=== PATIENT | male | born 1995 | race Caucasian/White ===

== ENCOUNTER 2016-11-25 23:37 | Inpatient (IN) | payer OTHER ==
[~2016-11-25] VITALS: Ht 190.5 cm; Wt 108.4 kg
[2016-11-25 23:57] LABS: BASOPHILS % (AUTO) 0.3 % (0.0-2.0); EOSINOPHILS % (AUTO) 0.8 % (1.0-6.0); HEMOGLOBIN 16.6 g/dL (13.5-17.5); LYMPHOCYTES # (AUTO) 4.7 K/uL (1.0-4.8); LYMPHOCYTES % (AUTO) 38.2 % (22.0-44.0); MEAN CORPUSCULAR HEMOGLOBIN 31.1 pg (26.0-34.0); MEAN CORPUSCULAR HGB CONC 33.9 G/dL (31.0-37.0); MEAN CORPUSCULAR VOLUME 92 fL (80-100); MONOCYTES # (AUTO) 1.1 K/uL (0.1-1.0); MONOCYTES % (AUTO) 9.2 % (2.0-9.0); NEUTROPHILS # (AUTO) 6.4 K/uL (1.8-7.7); NEUTROPHILS % (AUTO) 51.5 % (40.0-70.0); PLATELET COUNT (AUTO) 287 K/uL (150-450); RED BLOOD CELL COUNT(AUTO) 5.34 MIL/uL (4.50-5.90); RED CELL DISTRIBUTION WIDTH 13.2 % (11.5-14.5); WHITE BLOOD COUNT (AUTO) 12.4 K/uL (4.5-11.0)
[2016-11-25] MEDS ORDERED: PROP10 PO (23:58)
[2016-11-25] MEDS ORDERED: NAPR-58 PO (23:58)
[2016-11-25] MEDS ORDERED: CITA20TA9 PO (23:58)
[2016-11-25] MEDS ORDERED: MIRT30 PO (23:58)
[2016-11-25] MEDS ORDERED: CLON1TAB4 PO (23:58)
[2016-11-26] LABS: ANION GAP 9 mmol/L (8-16); CARBON DIOXIDE 28 mmol/L (22-29); CHLORIDE 105 mmol/L (98-107); GLOMERULAR FILTR. RATE CALC > 60 mL/min (>60); POTASSIUM 4.4 mmol/L (3.5-5.1); SODIUM SERUM 142 mmol/L (136-145); UREA NITROGEN, BLOOD 8 mg/dL (7-18)
[2016-11-26 00:06] LABS: ALANINE AMINOTRANSFERASE 50 U/L (12-78); ALBUMIN 4.5 g/dL (3.4-5.0); ASPARTATE AMINOTRANSFERASE 27 U/L (15-37); BILIRUBIN,TOTAL 0.6 mg/dL (0.1-1.0); TOTAL PROTEIN, SERUM 8.3 g/dL (6.4-8.2)
[2016-11-26 00:16] LABS: ACETAMINOPHEN < 2 mcg/mL (10-30)
[2016-11-26 00:35] LABS: SALICYLATE < 2.8 mg/dL (2.8-20.0)
[2016-11-26] MEDS ORDERED: HALOPERIDOL 5 MG TABLET PO PRN (05:45)
[2016-11-26] MEDS ORDERED: ZOLPIDEM TARTRATE 10 MG TABLET PO PRN (05:45)
[2016-11-26 05:49] LABS: APPEARANCE,URINE CLEAR (CLEAR); GLUCOSE, URINE (UA) NEGATIVE (NEGATIVE); KETONES,URINE NEGATIVE (NEGATIVE); LEUKOCYTE ESTERASE ,URINE NEGATIVE (NEGATIVE); OCCULT BLOOD,URINE NEGATIVE (NEGATIVE); PROTEIN,URINE NEGATIVE (NEGATIVE)
[2016-11-26 05:53] LABS: ADD UA MICROSCOPIC NO
[2016-11-26 07:30] LABS: CHOL/HDL RATIO 3.8 (4.2-7.3)
[2016-11-26] MEDS: LORazepam 2 MG TABLET PO PRN ×3 (08:00→20:59)
[2016-11-26] MEDS ORDERED: CARBOXYMETHYLCELLULOSE SODIUM 0.4 ML OPHTHALMIC SOLUTION [PF] OU ONE (08:00)
[2016-11-26] MEDS ORDERED: CloNIDine HCL 0.1 MG TABLET PO PRN (09:45)
[2016-11-26] MEDS ORDERED: PETROLATUM,WHITE 71 GM JELLY TP PRN (09:45)
[2016-11-26] MEDS ORDERED: ONDANSETRON HCL 4 MG TABLET PO PRN (09:45)
[2016-11-26] MEDS ORDERED: ACETAMINOPHEN 325 MG TABLET PO PRN (09:45)
[2016-11-26] MEDS ORDERED: BENZOCAINE/MENTHOL LOZENGE [8 LOZENGES/PACKET] MM PRN (09:45)
[2016-11-26] MEDS ORDERED: IBUPROFEN 600 MG TABLET PO PRN (09:45)
[2016-11-26] MEDS ORDERED: BACITRACIN 28.4 GM OINTMENT TP PRN (09:45)
[2016-11-26] MEDS ORDERED: ALBUTEROL SULFATE HFA 90 MCG/PUFF 8 GM INHALER IH PRN (09:45)
[2016-11-26] MEDS ORDERED: MAGNESIUM HYDROXIDE SUSPENSION 30 ML UDCUP PO PRN (09:45)
[2016-11-26] MEDS ORDERED: MAG HYDROX/AL HYDROX/SIMETH ES 30 ML SUSPENSION UDCUP PO PRN (09:45)
[2016-11-26] MEDS ORDERED: LOPERAMIDE HCL 2 MG CAPSULE PO PRN (09:45)
[2016-11-26 11:57] VITALS: BP 126/74
[2016-11-26] MEDS ORDERED: MAG HYDROX/AL HYDROX/SIMETH 30 ML SUSP UDCUP PO PRN (15:45)
[2016-11-26] MEDS: ClonazePAM 1 MG TABLET PO SCH (16:56)
[2016-11-26] MEDS ORDERED: PROPRANOLOL HCL 10 MG TABLET PO SCH (17:00)
[2016-11-26 18:08] VITALS: BP 119/92
[2016-11-26] MEDS ORDERED: MIRTAZAPINE 30 MG TABLET PO SCH (21:00)
[2016-11-27 08:32] VITALS: BP 119/72
[2016-11-27] MEDS ORDERED: CITALOPRAM HYDROBROMIDE 20 MG TABLET PO SCH (09:00)
[2016-11-27] MEDS: PROPRANOLOL HCL 40 MG TABLET PO SCH ×2 (09:10→16:26)
[2016-11-27] MEDS: ClonazePAM 1 MG TABLET PO SCH ×2 (09:10→16:26)
[2016-11-27] MEDS: LORazepam 2 MG TABLET PO PRN (12:25)
[2016-11-27 16:29] VITALS: BP 118/77
== END 2016-11-27 18:00 | disposition home or self-care (01) | DRG 885 ==
LOC: EMS 23:39 → 3EX 11-26 07:15
DX: F33.2 Major depressive disorder, recurrent severe without psychotic features (principal); F23 Brief psychotic disorder; R45.851 Suicidal ideations; F10.129 Alcohol abuse with intoxication, unspecified; F41.9 Anxiety disorder, unspecified; Y90.8 Blood alcohol level of 240 mg/100 ml or more; G47.00 Insomnia, unspecified; E78.5 Hyperlipidemia, unspecified; T42.4X2A Poisoning by benzodiazepines, intentional self-harm, initial encounter; Y92.89 Other specified places as the place of occurrence of the external cause; Y93.89 Activity, other specified; Y99.8 Other external cause status; Z79.899 Other long term (current) drug therapy
CPT/HCPCS: 93005; 99285; G0480; G0481

== ENCOUNTER 2021-06-26 11:33 | Inpatient (IN) | payer MEDICAID, OTHER ==
[~2021-06-26] VITALS: Ht 188 cm; Wt 134.6 kg
[~2021-06-26 11:33] MED LIST: CLON1TAB PO; LORA10TA60 PO; MIRT-93 PO; PROP40TA7 PO; VENL75CA61 PO
[2021-06-26] MEDS ORDERED: SODIUM CHLORIDE 0.9% 1,000 ML IV ONE (12:45)
[2021-06-26 12:56] LABS: BASOPHILS % (AUTO) 0.7 % (0.0-2.0); EOSINOPHILS % (AUTO) 1.7 % (1.0-6.0); HEMOGLOBIN 16.8 g/dL (13.5-17.5); LYMPHOCYTES # (AUTO) 5.1 K/uL (1.0-4.8); LYMPHOCYTES % (AUTO) 38.6 % (22.0-44.0); MEAN CORPUSCULAR HEMOGLOBIN 31.2 pg (26.0-34.0); MEAN CORPUSCULAR HGB CONC 34.2 G/dL (31.0-37.0); MEAN CORPUSCULAR VOLUME 91 fL (80-100); MONOCYTES # (AUTO) 1.2 K/uL (0.1-1.0); MONOCYTES % (AUTO) 9.3 % (2.0-9.0); NEUTROPHILS # (AUTO) 6.6 K/uL (1.8-7.7); NEUTROPHILS % (AUTO) 49.7 % (40.0-70.0); PLATELET COUNT (AUTO) 341 K/uL (150-450); RED BLOOD CELL COUNT(AUTO) 5.37 MIL/uL (4.50-5.90); RED CELL DISTRIBUTION WIDTH 13.5 % (11.5-14.5)
[2021-06-26 13:07] LABS: ANION GAP 16 mmol/L (8-16); CALCIUM, TOTAL 9.3 mg/dL (8.8-10.5); CARBON DIOXIDE 23 mmol/L (22-29); CHLORIDE 97 mmol/L (98-107); CREATININE 1.09 mg/dL (0.60-1.30); GLOMERULAR FILTR. RATE CALC > 60 mL/min (>60); GLUCOSE,RANDOM 163 mg/dL (70-110); POTASSIUM 3.4 mmol/L (3.5-5.1); SODIUM SERUM 136 mmol/L (136-145); UREA NITROGEN, BLOOD 9 mg/dL (7-18)
[2021-06-26 13:15] LABS: SALICYLATE 1.5 mg/dL (2.8-20.0)
[2021-06-26 13:20] LABS: B-TYPE NATRIURETIC PEPTIDE < 5 pg/mL (0-100)
[2021-06-26 13:23] LABS: ACETAMINOPHEN < 2 mcg/mL (10-30); ALANINE AMINOTRANSFERASE 238 U/L (12-78); ALBUMIN 4.1 g/dL (3.4-5.0); ALKALINE PHOSPHATASE 91 U/L (46-116); ASPARTATE AMINOTRANSFERASE 172 U/L (15-37); BILIRUBIN,TOTAL 0.6 mg/dL (0.1-1.0); CREATINE KINASE, TOTAL ONLY 229 U/L (39-308); TOTAL PROTEIN, SERUM 8.8 g/dL (6.4-8.2)
[2021-06-26] MEDS ORDERED: TRAZ-257 PO (13:52)
[2021-06-26] MEDS ORDERED: ATOR40TA28 PO (13:52)
[2021-06-26] MEDS ORDERED: GABA-1181 PO (13:52)
[2021-06-26] MEDS ORDERED: MIRT-89 PO (13:52)
[2021-06-26] MEDS ORDERED: VENL-193 PO (13:52)
[2021-06-26 14:02] LABS: COVID AG,FIA SOURCE NASAL SWAB
[2021-06-26 22:05] LABS: AMPHET/METH SCREEN,URINE POSITIVE (NEGATIVE); BARBITURATE SCREEN, URINE NEGATIVE (NEGATIVE); BENZODIAZEPINES SCREEN,URINE POSITIVE (NEGATIVE); CANNABINOID SCREEN,URINE POSITIVE (NEGATIVE); COCAINE SCREEN,URINE NEGATIVE (NEGATIVE); METHADONE SCREEN, URINE NEGATIVE (NEGATIVE); OPIATE SCREEN,URINE NEGATIVE (NEGATIVE)
[2021-06-26 22:06] LABS: PHENCYCLIDINE SCREEN,URINE NEGATIVE (NEGATIVE)
[2021-06-27 01:05] LABS: CHOL/HDL RATIO 5.9 (4.2-7.3); CHOLESTEROL 226 mg/dL (131-200); HDL CHOLESTEROL 38 mg/dL (40-60); TRIGLYCERIDES 454 mg/dL (15-150)
[2021-06-27] MEDS: LORazepam 2 MG TABLET PO PRN ×4 (01:13→21:12)
[2021-06-27] MEDS: ZOLPIDEM TARTRATE 10 MG TABLET PO PRN ×2 (01:13→21:13)
[2021-06-27] MEDS: HALOPERIDOL 5 MG TABLET PO PRN ×2 (03:43→21:12)
[2021-06-27] MEDS ORDERED: IBUPROFEN 600 MG TABLET PO PRN (04:15)
[2021-06-27 14:00] VITALS: BP 131/82
[2021-06-27 15:03] VITALS: BP 126/80
[2021-06-27 16:00] VITALS: BP 105/66
[2021-06-27] MEDS ORDERED: ACETAMINOPHEN 325 MG TABLET PO PRN (16:15)
[2021-06-27] MEDS ORDERED: LOPERAMIDE HCL 2 MG CAPSULE PO PRN (16:15)
[2021-06-27] MEDS ORDERED: MAG HYDROX/AL HYDROX/SIMETH ES 30 ML SUSPENSION UDCUP PO PRN (16:15)
[2021-06-27] MEDS ORDERED: NICOTINE 14 MG/24 HOUR PATCH TD PRN (16:15)
[2021-06-27] MEDS ORDERED: MAGNESIUM HYDROXIDE SUSPENSION 30 ML UDCUP PO PRN (16:15)
[2021-06-27] MEDS ORDERED: CloNIDine HCL 0.1 MG TABLET PO PRN (16:15)
[2021-06-27] MEDS ORDERED: ONDANSETRON HCL 4 MG TABLET PO PRN (16:15)
[2021-06-27] MEDS ORDERED: GuaiFENesin/D-METHORPHAN [SUGAR-FREE] 200-20MG/10 ML SYRUP UDCUP PO PRN (16:15)
[2021-06-27] MEDS ORDERED: PETROLATUM,WHITE 28 GM JELLY TP PRN (16:15)
[2021-06-27] MEDS ORDERED: DOCUSATE SODIUM 100 MG CAPSULE PO PRN (16:15)
[2021-06-27] MEDS ORDERED: ALBUTEROL SULFATE HFA 90 MCG/PUFF 8 GM INHALER IH PRN (16:15)
[2021-06-27 16:27] VITALS: BP 101/64
[2021-06-27 17:00] VITALS: BP 107/68
[2021-06-27 21:11] VITALS: BP 122/88
[2021-06-27] MEDS: IBUPROFEN 400 MG TABLET PO PRN (21:25)
[2021-06-28] MEDS ORDERED: INFLUENZA VIRUS VACCINE QVS 2021-22 (6MO+)/PF 60 MCG/0.5 ML SYRINGE IM. ONE (01:30)
[2021-06-28 05:30] VITALS: BP 131/70
[2021-06-28] MEDS: LORazepam 2 MG TABLET PO PRN ×2 (05:42→10:00)
[2021-06-28] MEDS: IBUPROFEN 400 MG TABLET PO PRN (05:42)
[2021-06-28] MEDS: HALOPERIDOL 5 MG TABLET PO PRN ×3 (05:42→16:44)
[2021-06-28 08:31] VITALS: BP 135/88
[2021-06-28] MEDS: ATORVASTATIN CALCIUM 40 MG TABLET PO SCH (08:42)
[2021-06-28 09:12] VITALS: BP 129/81
[2021-06-28] MEDS: PROPRANOLOL HCL 20 MG TABLET PO SCH ×2 (10:15→16:42)
[2021-06-28] MEDS ORDERED: CLON2TAB11 PO (12:56)
[2021-06-28 13:10] VITALS: BP 115/70
[2021-06-28] MEDS: GABAPENTIN 300 MG CAPSULE PO SCH ×2 (13:19→16:43)
[2021-06-28] MEDS: MIRTAZAPINE 15 MG TABLET PO SCH (13:20)
[2021-06-28 16:16] VITALS: BP 140/85
[2021-06-28] MEDS: VENLAFAXINE HCL 37.5 MG TABLET PO SCH (16:43)
[2021-06-28] MEDS: ClonazePAM 1 MG TABLET PO SCH (16:43)
[2021-06-28] MEDS ORDERED: TraZODone HCL 100 MG TABLET PO SCH (21:00)
[2021-06-28] MEDS ORDERED: MIRTAZAPINE 15 MG TABLET PO SCH (21:00)
[2021-06-29] MEDS: ZOLPIDEM TARTRATE 10 MG TABLET PO PRN (03:20)
[2021-06-29 05:18] VITALS: BP 137/72
[2021-06-29] MEDS: ClonazePAM 1 MG TABLET PO SCH (08:17)
[2021-06-29] MEDS: VENLAFAXINE HCL 37.5 MG TABLET PO SCH (08:17)
[2021-06-29] MEDS: PROPRANOLOL HCL 20 MG TABLET PO SCH (08:17)
[2021-06-29] MEDS: ATORVASTATIN CALCIUM 40 MG TABLET PO SCH (08:18)
[2021-06-29] MEDS: MIRTAZAPINE 15 MG TABLET PO SCH (08:18)
[2021-06-29] MEDS: GABAPENTIN 300 MG CAPSULE PO SCH (08:22)
[2021-06-29 08:24] VITALS: BP 122/85
[2021-06-29] MEDS: IBUPROFEN 400 MG TABLET PO PRN (08:29)
[2021-06-29] MEDS ORDERED: VENLAFAXINE HCL 75 MG TABLET PO SCH (09:00)
[2021-06-29] MEDS ORDERED: GABA-1181 PO (10:10)
[2021-06-29] MEDS ORDERED: TRAZ-257 PO (10:10)
[2021-06-29] MEDS ORDERED: VENL-193 PO (10:10)
[2021-06-29] MEDS ORDERED: MIRT-89 PO (10:10)
== END 2021-06-29 12:15 | disposition home or self-care (01) | DRG 750 ==
LOC: EMS 11:41 → B3A 06-27 06:00
PROVIDERS: ADMIT Psychiatry & Neurology Psychiatry; ATTEND Psychiatry & Neurology Psychiatry
DX: F25.1 Schizoaffective disorder, depressive type (principal); D72.829 Elevated white blood cell count, unspecified; Z20.822 Contact with and (suspected) exposure to COVID-19; E66.9 Obesity, unspecified; E78.5 Hyperlipidemia, unspecified; E87.6 Hypokalemia; T42.4X2A Poisoning by benzodiazepines, intentional self-harm, initial encounter; Y90.8 Blood alcohol level of 240 mg/100 ml or more; F10.20 Alcohol dependence, uncomplicated; R73.9 Hyperglycemia, unspecified; F12.10 Cannabis abuse, uncomplicated; F15.10 Other stimulant abuse, uncomplicated; Y92.89 Other specified places as the place of occurrence of the external cause; Z68.38 Body mass index [BMI] 38.0-38.9, adult; Z28.21 Immunization not carried out because of patient refusal; Z79.899 Other long term (current) drug therapy; Z78.1 Physical restraint status; Z91.51 Personal history of suicidal behavior
CPT/HCPCS: 80053; 80061; 82550; 83880; 84484; 85025; 93005; 99291; G0480; G0481

== ENCOUNTER 2021-11-03 21:55 | Inpatient (IN) | payer MEDICAID ==
[~2021-11-03] VITALS: Ht 188 cm; Wt 132.0 kg
[~2021-11-03 21:55] MED LIST changes: +ATOR40TA28 PO; -CLON1TAB PO; +CLON2TAB11 PO; +GABA-1181 PO; -LORA10TA60 PO; +MIRT-89 PO; -MIRT-93 PO; +TRAZ-257 PO; +VENL-193 PO; -VENL75CA61 PO
[2021-11-03] MEDS ORDERED: SODIUM CHLORIDE 0.9% 1,000 ML IV ONE (22:15)
[2021-11-03] MEDS ORDERED: ACTIVATED CHARCOAL 50 GM/240 ML SUSPENSION PO ONE (22:15)
[2021-11-03 22:27] LABS: BASOPHILS % (AUTO) 0.5 % (0.0-2.0); EOSINOPHILS % (AUTO) 1.6 % (1.0-6.0); HEMATOCRIT 43.2 % (41-53); HEMOGLOBIN 14.4 g/dL (13.5-17.5); LYMPHOCYTES # (AUTO) 3.5 K/uL (1.0-4.8); LYMPHOCYTES % (AUTO) 25.4 % (22.0-44.0); MEAN CORPUSCULAR HEMOGLOBIN 30.6 pg (26.0-34.0); MEAN CORPUSCULAR HGB CONC 33.3 G/dL (31.0-37.0); MEAN CORPUSCULAR VOLUME 92 fL (80-100); MONOCYTES # (AUTO) 1.1 K/uL (0.1-1.0); MONOCYTES % (AUTO) 8.1 % (2.0-9.0); NEUTROPHILS % (AUTO) 64.4 % (40.0-70.0); PLATELET COUNT (AUTO) 282 K/uL (150-450); RED CELL DISTRIBUTION WIDTH 13.1 % (11.5-14.5)
[2021-11-03 22:37] LABS: ANION GAP 14 mmol/L (8-16); CALCIUM, TOTAL 8.6 mg/dL (8.8-10.5); CARBON DIOXIDE 22 mmol/L (22-29); CHLORIDE 99 mmol/L (98-107); CREATININE 1.04 mg/dL (0.60-1.30); GLOMERULAR FILTR. RATE CALC > 60 mL/min (>60); GLUCOSE,RANDOM 145 mg/dL (70-110); POTASSIUM 3.4 mmol/L (3.5-5.1); SODIUM SERUM 135 mmol/L (136-145); UREA NITROGEN, BLOOD 10 mg/dL (7-18)
[2021-11-03 22:43] LABS: ALANINE AMINOTRANSFERASE 98 U/L (12-78); ALBUMIN 3.7 g/dL (3.4-5.0); ALKALINE PHOSPHATASE 82 U/L (46-116); ASPARTATE AMINOTRANSFERASE 51 U/L (15-37); BILIRUBIN,TOTAL 0.7 mg/dL (0.1-1.0); TOTAL PROTEIN, SERUM 7.3 g/dL (6.4-8.2)
[2021-11-03 22:51] LABS: ACETAMINOPHEN < 2 mcg/mL (10-30)
[2021-11-03 23:13] LABS: SALICYLATE 0.6 mg/dL (2.8-20.0)
[2021-11-04 05:03] LABS: COVID AG,FIA SOURCE NASAL SWAB
[2021-11-04 07:25] LABS: APPEARANCE,URINE HAZY (CLEAR); BILIRUBIN,URINE NEGATIVE (NEGATIVE); GLUCOSE, URINE (UA) NEGATIVE (NEGATIVE); KETONES,URINE NEGATIVE (NEGATIVE); LEUKOCYTE ESTERASE ,URINE NEGATIVE (NEGATIVE); NITRATE,URINE NEGATIVE (NEGATIVE); OCCULT BLOOD,URINE NEGATIVE (NEGATIVE); PROTEIN,URINE NEGATIVE (NEGATIVE); UROBILINOGEN,URINE <=1.0 mg/dL (<=1.0)
[2021-11-04 07:38] LABS: AMPHET/METH SCREEN,URINE NEGATIVE (NEGATIVE); BARBITURATE SCREEN, URINE NEGATIVE (NEGATIVE); BENZODIAZEPINES SCREEN,URINE POSITIVE (NEGATIVE); CANNABINOID SCREEN,URINE POSITIVE (NEGATIVE); COCAINE SCREEN,URINE NEGATIVE (NEGATIVE); METHADONE SCREEN, URINE NEGATIVE (NEGATIVE); OPIATE SCREEN,URINE NEGATIVE (NEGATIVE)
[2021-11-04 07:39] LABS: PHENCYCLIDINE SCREEN,URINE NEGATIVE (NEGATIVE)
[2021-11-04] MEDS: LORazepam 2 MG TABLET PO PRN (07:50)
[2021-11-04] MEDS ORDERED: BACITRACIN 0.9 GM PACKET OINTMENT TP ONE (10:30)
[2021-11-04] MEDS ORDERED: DiphenhydrAMINE HCL 25 MG CAPSULE PO ONE (10:30)
[2021-11-04] MEDS ORDERED: LORazepam 2 MG TABLET PO ONE (10:30)
[2021-11-04] MEDS: HALOPERIDOL 5 MG TABLET PO PRN ×2 (11:04→20:18)
[2021-11-04] MEDS: ZOLPIDEM TARTRATE 10 MG TABLET PO PRN ×2 (11:06→20:17)
[2021-11-04 13:21] VITALS: BP 141/100
[2021-11-04 16:26] VITALS: BP 104/60
[2021-11-04] MEDS ORDERED: GABAPENTIN 300 MG CAPSULE PO ONE (20:00)
[2021-11-04] MEDS ORDERED: ALBUTEROL SULFATE HFA 90 MCG/PUFF 8 GM INHALER IH PRN (21:45)
[2021-11-05] MEDS ORDERED: NICOTINE 14 MG/24 HOUR PATCH TD PRN (07:30)
[2021-11-05] MEDS ORDERED: MAGNESIUM HYDROXIDE SUSPENSION 30 ML UDCUP PO PRN (07:30)
[2021-11-05] MEDS ORDERED: MAG HYDROX/AL HYDROX/SIMETH ES 30 ML SUSPENSION UDCUP PO PRN (07:30)
[2021-11-05] MEDS ORDERED: ALBUTEROL SULFATE HFA 90 MCG/PUFF 8 GM INHALER IH PRN (07:30)
[2021-11-05] MEDS ORDERED: PETROLATUM,WHITE 28 GM JELLY TP PRN (07:30)
[2021-11-05] MEDS ORDERED: LOPERAMIDE HCL 2 MG CAPSULE PO PRN (07:30)
[2021-11-05] MEDS ORDERED: IBUPROFEN 400 MG TABLET PO PRN (07:30)
[2021-11-05] MEDS ORDERED: ONDANSETRON HCL 4 MG TABLET PO PRN (07:30)
[2021-11-05] MEDS ORDERED: GuaiFENesin/D-METHORPHAN [SUGAR-FREE] 200-20MG/10 ML SYRUP UDCUP PO PRN (07:30)
[2021-11-05] MEDS ORDERED: DOCUSATE SODIUM 100 MG CAPSULE PO PRN (07:30)
[2021-11-05] MEDS ORDERED: ACETAMINOPHEN 325 MG TABLET PO PRN (07:30)
[2021-11-05] MEDS ORDERED: CloNIDine HCL 0.1 MG TABLET PO PRN (07:30)
[2021-11-05 08:00] VITALS: BP 142/100
[2021-11-05] MEDS: HALOPERIDOL 5 MG TABLET PO PRN (08:04)
[2021-11-05] MEDS: LORazepam 2 MG TABLET PO PRN (08:04)
[2021-11-05] MEDS: GABAPENTIN 300 MG CAPSULE PO SCH ×3 (08:04→16:14)
[2021-11-05] MEDS: NICOTINE 14 MG/24 HOUR PATCH TD SCH (08:05)
[2021-11-05] MEDS ORDERED: ATORVASTATIN CALCIUM 40 MG TABLET PO SCH (09:00)
[2021-11-05] MEDS: PROPRANOLOL HCL 40 MG TABLET PO SCH ×2 (10:01→16:14)
[2021-11-05] MEDS: ATORVASTATIN CALCIUM 40 MG TABLET PO SCH (10:02)
[2021-11-05 12:45] VITALS: BP 138/84
[2021-11-05 16:00] VITALS: BP 143/94
[2021-11-05] MEDS: VENLAFAXINE HCL 75 MG ER CAPSULE PO SCH (16:14)
[2021-11-05 16:30] VITALS: BP 143/94
[2021-11-05 16:50] VITALS: BP 143/94
[2021-11-05] MEDS ORDERED: PROPRANOLOL HCL 40 MG TABLET PO SCH (17:00)
[2021-11-05] MEDS ORDERED: TraZODone HCL 100 MG TABLET PO SCH (21:00)
[2021-11-05] MEDS ORDERED: MIRTAZAPINE 15 MG TABLET PO SCH (21:00)
[2021-11-06] MEDS: ZOLPIDEM TARTRATE 10 MG TABLET PO PRN (01:23)
[2021-11-06 03:56] VITALS: BP 135/101
[2021-11-06 08:55] VITALS: BP 131/85
[2021-11-06] MEDS: VENLAFAXINE HCL 75 MG ER CAPSULE PO SCH (08:56)
[2021-11-06] MEDS: ATORVASTATIN CALCIUM 40 MG TABLET PO SCH (08:56)
[2021-11-06] MEDS: GABAPENTIN 300 MG CAPSULE PO SCH ×2 (08:57→13:05)
[2021-11-06] MEDS: PROPRANOLOL HCL 40 MG TABLET PO SCH (08:57)
[2021-11-06] MEDS: NICOTINE 14 MG/24 HOUR PATCH TD SCH (08:58)
[2021-11-06] MEDS ORDERED: GABA-1181 PO (12:51)
[2021-11-06] MEDS ORDERED: MIRT-89 PO (12:51)
[2021-11-06] MEDS ORDERED: VENL-67 PO (12:51)
[2021-11-06] MEDS ORDERED: TRAZ-257 PO (12:51)
== END 2021-11-06 14:15 | disposition home or self-care (01) | DRG 750 ==
LOC: EMS 21:58 → 3EI 11-04 11:14
PROVIDERS: ADMIT Psychiatry & Neurology Child & Adolescent Psychiatry; ATTEND Psychiatry & Neurology Child & Adolescent Psychiatry
DX: F25.1 Schizoaffective disorder, depressive type (principal); E87.1 Hypo-osmolality and hyponatremia; R73.9 Hyperglycemia, unspecified; Z20.822 Contact with and (suspected) exposure to COVID-19; F22 Delusional disorders; F32.A Depression, unspecified; D72.829 Elevated white blood cell count, unspecified; T43.212A Poisoning by selective serotonin and norepinephrine reuptake inhibitors, intentional self-harm, initial encounter; F40.01 Agoraphobia with panic disorder; T44.7X2A Poisoning by beta-adrenoreceptor antagonists, intentional self-harm, initial encounter; T48.1X2A Poisoning by skeletal muscle relaxants [neuromuscular blocking agents], intentional self-harm, initial encounter; E66.9 Obesity, unspecified; E78.5 Hyperlipidemia, unspecified; E87.6 Hypokalemia; F10.10 Alcohol abuse, uncomplicated; F41.9 Anxiety disorder, unspecified; Z59.00 Homelessness unspecified; Y92.89 Other specified places as the place of occurrence of the external cause; Z68.37 Body mass index [BMI] 37.0-37.9, adult; Z79.899 Other long term (current) drug therapy
CPT/HCPCS: 80053; 81003; 85025; 93005; 99285; G0480; G0481; J3535; J7030